=== PATIENT | male | born 1970 | race Caucasian/White ===

== ENCOUNTER → 2021-09-05 | Outpatient (CLI) | payer BC ==
[~2021-09-05] MED LIST: PANTOPRAZOLE SO20 MG PO; SUCRALFATE1 GM/10 ML PO
== END | disposition home or self-care (01) ==
LOC: RAD 09:15
PROVIDERS: ATTEND Nurse Practitioner Family
DX: R05.9 Cough, unspecified (principal); M25.50 Pain in unspecified joint

== ENCOUNTER 2021-09-10 09:19 | Emergency (ER) | payer BC ==
[~2021-09-10] VITALS: Wt 99.3 kg
[2021-09-10 12:29] LABS: ALBUMIN 3.5 gm/dl (3.1-4.5); ALKALINE PHOSPHATASE 106 U/L (45-117); BASO % 0.5 % (0.0-1.0); BUN 16 mg/dl (7-24); CHLORIDE 91 mmol/L (98-107); CREATININE 1.14 mg/dL (0.70-1.30); EOS % 0.1 % (1.0-4.0); HEMATOCRIT 48.3 % (42.0-52.0); LIPASE 255 U/L (73-393); LYMPH # 1.2 10*3/uL (1.3-4.4); LYMPH % 14.4 % (27.0-41.0); MEAN CELL VOLUME 90.4 fl (80.0-94.0); MEAN CORPUSCULAR HGB 32.8 pg (27.0-31.0); MEAN CORPUSCULAR HGB CONC 36.2 g/dl (33.0-37.0); MEAN PLATELET VOLUME 9.3 fl (9.6-12.3); MONO # 0.6 10*3/uL (0.1-1.0); MONO % 7.1 % (3.0-9.0); NEUT # 6.6 10*3/uL (2.3-7.9); NEUT % 77.5 % (47.0-73.0); PLATELET COUNT AUTOMATED 325 10*3/uL (130-400); POTASSIUM 3.5 mmol/L (3.5-5.1); RED BLOOD COUNT 5.34 10*6/uL (4.50-5.90); RED CELL DISTRI WIDTH 11.9 % (0-14.5); SGOT/AST 57 IU/L (3-35); SGPT/ALT 95 U/L (12-78); SODIUM 131 mmol/L (136-145); TOTAL PROTEIN 7.4 gm/dL (6.4-8.2); WHITE BLOOD COUNT 8.6 10*3/uL (4.8-10.8)
[2021-09-10] MEDS ORDERED: SUCRALFATE1 GM/10 ML PO (15:32)
[2021-09-10] MEDS ORDERED: PANTOPRAZOLE SO20 MG PO (15:32)
== END 2021-09-10 15:50 | disposition home or self-care (01) ==
LOC: ED 09:19
PROVIDERS: Physician Assistant
DX: K20.90 Esophagitis, unspecified without bleeding (principal); Z88.0 Allergy status to penicillin

== ENCOUNTER 2022-07-31 18:18 | Emergency (ER) | payer BC ==
[~2022-07-31] VITALS: Wt 106.6 kg
[~2022-07-31 18:18] MED LIST changes: +FAMOTIDINE40 MG PO; +OMEPRAZOLE40 MG PO; +ONDANSETRON HYDR4 M1 PO
[2022-07-31 19:12] LABS: BASO % 0.3 % (0.0-1.0); EOS # 0.1 10*3/uL (0.0-0.4); EOS % 2.1 % (1.0-4.0); HEMATOCRIT 43.7 % (42.0-52.0); LYMPH % 18.1 % (27.0-41.0); MEAN CELL VOLUME 95.4 fl (80.0-94.0); MEAN CORPUSCULAR HGB 34.3 pg (27.0-31.0); MEAN CORPUSCULAR HGB CONC 35.9 g/dl (33.0-37.0); MEAN PLATELET VOLUME 9.4 fl (9.6-12.3); MONO # 0.6 10*3/uL (0.1-1.0); MONO % 9.9 % (3.0-9.0); NEUT % 69.4 % (47.0-73.0); PLATELET COUNT AUTOMATED 212 10*3/uL (130-400); RED BLOOD COUNT 4.58 10*6/uL (4.50-5.90); RED CELL DISTRI WIDTH 12.7 % (0-14.5); WHITE BLOOD COUNT 5.8 10*3/uL (4.8-10.8)
[2022-07-31 19:26] LABS: ACT PARTIAL THROMBO TIME 26.3 SECONDS (20.0-32.1)
[2022-07-31 19:30] LABS: ALKALINE PHOSPHATASE 419 U/L (45-117); BUN 11 mg/dl (7-24); CHLORIDE 100 mmol/L (98-107); CREATININE 0.83 mg/dL (0.70-1.30); LIPASE 1152 U/L (73-393); POTASSIUM 3.5 mmol/L (3.5-5.1); SGOT/AST 144 IU/L (3-35); SGPT/ALT 190 U/L (12-78); SODIUM 133 mmol/L (136-145); TOTAL PROTEIN 7.1 gm/dL (6.4-8.2)
== END 2022-08-01 02:10 | disposition home or self-care (01) ==
LOC: ED 18:18
PROVIDERS: Emergency Medicine
DX: K85.90 Acute pancreatitis without necrosis or infection, unspecified (principal); R79.89 Other specified abnormal findings of blood chemistry; Z88.0 Allergy status to penicillin; Z79.899 Other long term (current) drug therapy; F17.220 Nicotine dependence, chewing tobacco, uncomplicated

== ENCOUNTER → 2022-08-29 | Day surgery (SDC) | payer BC ==
[2022-08-27 14:02] VITALS: BP 108/74
[~2022-08-29] VITALS: Ht 190.5 cm; Wt 100.7 kg
[~2022-08-29] MED LIST changes: +COLACE100 MG PO; +HYDROCODONE-AC1 EAC1 PO
[2022-08-29 09:55] VITALS: BP 134/87
[2022-08-29 13:35] VITALS: BP 153/132
[2022-08-29 13:50] VITALS: BP 137/76
[2022-08-29 14:05] VITALS: BP 164/84
[2022-08-29 14:20] VITALS: BP 148/72
[2022-08-29 14:38] VITALS: BP 156/86
== END | disposition home or self-care (01) ==
LOC: SDC 08-22 14:00
PROVIDERS: ATTEND Surgery
DX: K80.10 Calculus of gallbladder with chronic cholecystitis without obstruction (principal); K85.10 Biliary acute pancreatitis without necrosis or infection; K21.9 Gastro-esophageal reflux disease without esophagitis; I10 Essential (primary) hypertension; F41.9 Anxiety disorder, unspecified; F32.9 Major depressive disorder, single episode, unspecified; Z79.899 Other long term (current) drug therapy

== ENCOUNTER 2023-01-15 09:33 | Emergency (ER) | payer BC ==
[~2023-01-15] VITALS: Wt 104.3 kg
[2023-01-15] MEDS ORDERED: IBU800 M2 PO (10:35)
== END 2023-01-15 10:39 | disposition home or self-care (01) ==
LOC: ED 09:33
DX: S96.911A Strain of unspecified muscle and tendon at ankle and foot level, right foot, initial encounter (principal); I10 Essential (primary) hypertension; Z98.890 Other specified postprocedural states; F10.10 Alcohol abuse, uncomplicated; F17.220 Nicotine dependence, chewing tobacco, uncomplicated; Z88.0 Allergy status to penicillin; X50.3XXA Overexertion from repetitive movements, initial encounter; Y93.89 Activity, other specified; Y92.89 Other specified places as the place of occurrence of the external cause; Y99.8 Other external cause status